=== PATIENT | female | born 1985 | race Caucasian/White ===

== ENCOUNTER → 2021-06-15 | Outpatient (CLI) | payer OTHER ==
--- NOTE | 2021-06-15 14:30 | P.GSHP ---
History of Present Illness H&P Date: 06/15/21 Chief Complaint: abnormal left breast mammogram Jillian is a 35-year-old white female seen in consultation for Dr. Dominique regarding left breast pain. She was seen about 3 months ago and bilateral mammogram and ultrasound were done which showed bilateral complicated cyst. She started to wear sports bra's and the pain has improved. The pain returns if she doesn't wear a bra. The pain in only in the left breast and is sharp in nature. It does not spread. It seems to be in proximetry to cyst noted on ultrasound. She has never had any breast surgery in the past. She does not complain of any recent trauma or infection in the breast. She does not feel any specific lumps masses or nodules in the breast. She is not complaining of any nipple discharge. Mammogram report from [facility] performed on 1521 revealed two high risk lesions in bilateral breast one is a 2.3 x 1.1 cm lesion right breast, and the second is a 0.85 x 0.7 cm lesion at the 9 o'clock position in the left breast 522 bilateral breast ultrasounds done revealing complicated cyst in both breasts Aspiration biopsy of both breast cyst recommend Caffeine: 1 can/day; used to drink a 2 liter/day nicotine: stopped 3 years ago chocolate: occasional Family History: great aunt maternal: breast cancer mother: pre-leukemia maternal grandfather: colon cancer two times Hormonal History: menarche: 11 , breast fed: no, age at first : 20 periods regular on DEPO 15 years ago BCP: 2 years hormones: DEPO 15 years Surgical History: gallbladder tubes in ears LEEP procedure Medical History: none Social History: nicotine: 1/PPD for 12 years stopped 3 years ago alcohol: stopped 3 years ago drugs: none - Constitutional Constitutional: Reports sweats - EENT Eyes: denies blurred vision, denies pain Ears: deny: decreased hearing, tinnitus Ears, nose, mouth and throat: Denies headache, Denies sore throat - Breasts Breasts: bilateral: as per HPI - Cardiovascular Cardiovascular: Denies chest pain, Denies shortness of breath - Respiratory Respiratory: Denies cough, Denies 7 - Gastrointestinal Gastrointestinal: Denies abdominal pain, Denies diarrhea, Denies nausea, Denies vomiting - Genitourinary (Female) Genitourinary: Denies dysuria, Denies hematuria - Menstruation Comment: no periods for 8 years Menstruation: Reports as per HPI - Musculoskeletal Musculoskeletal: Denies myalgias - Integumentary Integumentary: Denies pruritus, Denies rash - Psychiatric Psychiatric: Denies anxiety, Denies depression - Endocrine Endocrine: Denies fatigue, Denies weight change - Hematologic/Lymphatic Comment: anemia in past - Allergic/Immunologic Allergic/Immunologic: Reports seasonal allergies Past Medical History Past Medical History: GERD/Reflux History of Any Multi-Drug Resistant Organisms: None Reported Past Surgical History: Cholecystectomy Additional Past Surgical History / Comment(s): cervical leep. bilat tubes in ears Past Anesthesia/Blood Transfusion Reactions: No Reported Reaction Past Psychological History: No Psychological Hx Reported Smoking Status: Former smoker Past Alcohol Use History: Rare Past Drug Use History: None Reported Medications and Allergies Home Medications Medication Instructions Recorded Confirmed Type Omeprazole 20 mg PO DAILY 06/09/21 06/09/21 History medroxyPROGESTERone [Depo-Provera] 150 mg IM ONCE 06/09/21 06/09/21 History Allergies Allergy/AdvReac Type Severity Reaction Status Date / Time cephalexin [From Keflex] Allergy Rash/Hives Verified 06/09/21 11:55 iodine Allergy Rash/Hives Verified 06/09/21 11:55 Surgical - Exam - General no distress - Eyes normal ocular movement - Neck trachea midline - Respiratory normal respiratory effort - Cardiovascular Rhythm: regular Heart Sounds: normal: S1, S2 - Abdomen Abdomen: soft - Integumentary normal turgor - Neurologic no disoriented, no combative - Musculoskeletal normal gait - Psychiatric oriented to time, oriented to person, oriented to place, speech is normal, memory intact Breast Exam: BRA: 42C inspection: Bilateral grade 3 ptosis Palpation: Right breast: Positional exam fibrocystic changes no dominant masses or nodules of concern Right axilla: No adenopathy of concern Left breast: Multi-positional exam fibrocystic changes no dominant masses or nodules of concern Left axilla: No adenopathy of concern Results Mammogram and ultrasound reports from [facility] reviewed from March 2021 Assessment and Plan Assessment: Impression: Radiographic abnormality bilateral breast Fibrocystic breast changes Mastodynia High caffeine intake which has now decreased Plan: Bilateral breast ultrasound core aspiration/biopsy Follow up after results of biopsy Continue to avoid caffeine Cc: Dr. Dominique
== END ==
LOC: WWCWWP 13:16
PROVIDERS: ATTEND Surgery
DX: N60.11 Diffuse cystic mastopathy of right breast (principal); N60.12 Diffuse cystic mastopathy of left breast; R92.8 Other abnormal and inconclusive findings on diagnostic imaging of breast; Z87.891 Personal history of nicotine dependence; Z88.1 Allergy status to other antibiotic agents; Z91.041 Radiographic dye allergy status

== ENCOUNTER → 2021-06-19 | Day surgery (SDC) | payer OTHER ==
[2021-06-19 12:32] VITALS: RESP 16
[2021-06-19 14:13] VITALS: BP 110/77; PULSE 74; TEMP 98.4
--- NOTE | 2021-06-19 16:41 | USB ---
EXAMINATION TYPE: US breast aspiration single RT and single left. DATE OF EXAM: 06/19/2021 CLINICAL HISTORY: N63 BREAST LUMP/MASS. Abnormal ultrasound TECHNIQUE: Ultrasound guided vaccuum assisted core biopsy of right breast. COMPARISON: 05/03/2021 ultrasound FINDINGS: The ultrasound guided cyst aspiration procedure was explained to the patient. The risks, b enefits, alternatives were discussed. An informed consent was then obtained. Timeout was performed. The patient was placed in supine positioning for imaging and for the procedure. The overlying skin w as prepped with betadine and sterilely draped in usual sterile fashion. Lidocaine 1% was used as ane sthetic into the skin and deeper breast tissue up to area of concern in the breast. Under ultrasound guidance, an 18-gauge vacuum assisted aspiration device was used to cyst aspiration for sampling. Collapse of a left breast fluid-filled structure was obtained. Sample was labeled for transferred to pathology. A biopsy clip was left in lesion. Ribbon clip was placed. The patient was placed in supine positioning for imaging and for the procedure. The overlying skin w as prepped with betadine and sterilely draped in usual sterile fashion. Lidocaine 1% was used as ane sthetic into the skin and deeper breast tissue up to area of concern in the breast. Under ultrasound guidance, an 18-gauge vacuum assisted aspiration device was used to cyst aspiration for sampling. Easy collapse of a right breast fluid-filled structure was obtained. Sample was labele d for transferred to pathology. A biopsy clip was left in lesion. Wing clip was placed. Good hemostasis was obtained with direct pressure. Discharge instructions were discussed with the chidi molina. The patient will follow up with the referring physician for results. Postprocedure mammogram: The patient was transferred to mammography for physician ordered post proced ure mammogram for clip placement verification. The clips are in the expected region of the biopsy. The patient tolerated the procedure well without any immediate complication. The patient was dischar ged to home in stable condition. IMPRESSION: 1. Successful ultrasound guided cyst aspiration bilateral breasts. Recommendations: 1. Recommendations are pending pathology results.
== END | disposition home or self-care (01) ==
LOC: RADUSWWP 11:49
PROVIDERS: ATTEND Surgery
DX: N63.10 Unspecified lump in the right breast, unspecified quadrant (principal); N63.20 Unspecified lump in the left breast, unspecified quadrant
CPT/HCPCS: 88305; 88173; 77066; 76942; 19000 ×2; A4648; J2001

== ENCOUNTER → 2021-06-23 | Outpatient (CLI) | payer OTHER ==
[2021-06-23 13:17] VITALS: BP 124/73; PULSE 105; RESP 16; TEMP 98.5
--- NOTE | 2021-06-23 13:24 | P.PN ---
Subjective Progress Note Date: 06/23/21 Principal diagnosis: fibrocystic breast disease Jillian is a 35-year-old white female status post aspiration of bilateral breast cyst performed on 220 122. The cyst on the left breast was at 9:00 and was degenerating cellular material, forming back or 5 inches and inflammatory cells Cyst on the right breast was 10:00 clusters of bland apocrine Cells in a background of degenerated cellular material Patient tolerated procedure without difficulty. The patient states that after the cysts were aspirated she has no more mastodynia. Objective - Vital Signs Vital signs: Vital Signs Temp 98.5 F 06/23/21 13:07 Pulse 105 H 06/23/21 13:07 Resp 16 06/23/21 13:07 BP 124/73 06/23/21 13:07 Pulse Ox Intake & Output 06/22/21 06/23/21 06/23/21 18:59 06:59 18:59 Weight 131.542 kg - Constitutional General appearance: Present: cooperative - EENT Eyes: Present: edentulous ENT: Present: hearing grossly normal - Neck Neck: Present: normal ROM - Integumentary Integumentary Comment(s): Aspiration size bilateral breast clean and dry no evidence of any infection Assessment and Plan Assessment: Impression: Fibrocystic breast changes Status post aspiration bilateral cysts Plan: Bilateral breast ultrasound in 6 months. Physician exam at that time. CC: Dr. Dominique, Dr. Arredondo
== END ==
LOC: WWCWWP 12:20
PROVIDERS: ATTEND Surgery
DX: N60.19 Diffuse cystic mastopathy of unspecified breast (principal); Z98.890 Other specified postprocedural states; Z88.1 Allergy status to other antibiotic agents; Z91.041 Radiographic dye allergy status

== ENCOUNTER → 2022-01-03 | Outpatient (CLI) | payer OTHER ==
--- NOTE | 2022-01-04 12:01 | USB ---
Reason for Exam: Follow-up at short interval from prior study. Patient History: Menarche at age 11. First Full-Term at age 20. Currently using Hormonal Contraceptives, for 15 years. 06/19/2021, Benign Cyst Aspiration on the left side. 06/19/2021, Benign Cyst Aspiration on the right side. Maternal aunt had breast cancer. Risk Values: Gerda 5 year model risk: 0.2%. NCI Lifetime model risk: 8.2%. Prior Study Comparison: 06/19/2021 Bilateral Diagnostic Mammogram, [facility]. Findings: The area of palpable concern of both breasts, the axilla of both breasts and the retroareolar of both breasts were scanned. Right limited breast ultrasound includes all four quadrants, the retroareolar region and axilla. Finding demonstrates a 1.5 x 1.6 x 1.1cm cystic lesion at 10 o'clock, 7cm from the nipple, septated, smaller than comparison. Left limited breast ultrasound includes all four quadrants, the retroareolar region and axilla. Finding is negative. Overall Assessment: Probably benign, BI-RAD 3 Management: Diagnostic Mammogram of both breasts in 6 months. Diagnostic Breast Ultrasound of the right breast in 6 months. Manage on a clinical basis. A clinical breast exam by your physician is recommended on an annual basis and results should be correlated with mammographic findings. This exam should not preclude additional follow-up of suspicious palpable abnormalities. Results were given to the patient verbally at the time of exam. Electronically signed and approved by: Don Bowman D.O. Radiologis
== END | disposition home or self-care (01) ==
LOC: RADUSWWP 14:24
PROVIDERS: ATTEND Surgery
DX: N60.02 Solitary cyst of left breast (principal); Z80.3 Family history of malignant neoplasm of breast

== ENCOUNTER → 2022-01-18 | Outpatient (CLI) | payer OTHER ==
[2022-01-18 15:25] VITALS: BP 125/84; PULSE 90; RESP 17; TEMP 97.8
--- NOTE | 2022-01-18 15:28 | P.PN ---
Subjective Progress Note Date: 01/18/22 Principal diagnosis: fibrocystic breast changes Jillian is a 36 year old white female with a history of fibrocystic breast changes. She had a core aspiration/biopsy of both breast on 06-19-21. Findings were benign. On 01-03-22 she had a bilateral ultrasound which was BIRAD 3, revealing a cyst in the right breast, no lesions in the left breast. She is not complaining of any lumps masses or nodules in either breast. Does not had any recent trauma or infection in the breast. Caffeine: 1 can/day; used to drink a 2 liter/day nicotine: stopped 4 years ago chocolate: occasional Family History: great aunt maternal: breast cancer mother: pre-leukemia maternal grandfather: colon cancer two times Hormonal History: menarche: 11 , breast fed: no, age at first : 20 periods regular on DEPO 15 years ago BCP: 2 years hormones: DEPO 15 years Surgical History: gallbladder tubes in ears LEEP procedure Medical History: none Social History: nicotine: 1/PPD for 12 years stopped 3 years ago alcohol: stopped 3 years ago drugs: none - Constitutional Constitutional: Reports sweats - EENT Eyes: denies blurred vision, denies pain Ears: deny: decreased hearing, tinnitus Ears, nose, mouth and throat: Denies headache, Denies sore throat - Breasts Breasts: bilateral: as per HPI - Cardiovascular Cardiovascular: Denies chest pain, Denies shortness of breath - Respiratory Respiratory: Denies cough - Gastrointestinal Gastrointestinal: Denies abdominal pain, Denies diarrhea, Denies nausea, Denies vomiting - Genitourinary (Female) Genitourinary: Denies dysuria, Denies hematuria - Menstruation Comment: no periods for 8 years Menstruation: Reports as per HPI - Musculoskeletal Musculoskeletal: Denies myalgias - Integumentary Integumentary: Denies pruritus, Denies rash - Psychiatric Psychiatric: Denies anxiety, Denies depression - Endocrine Endocrine: Denies fatigue, Denies weight change - Hematologic/Lymphatic Comment: anemia in past - Allergic/Immunologic Allergic/Immunologic: Reports seasonal allergies Objective - Constitutional General appearance: Present: cooperative - EENT Eyes: Present: EOMI ENT: Present: hearing grossly normal - Neck Neck: Present: normal ROM - Respiratory Respiratory: bilateral: CTA - Cardiovascular Rhythm: regular Heart sounds: normal: S1, S2 - Gastrointestinal General gastrointestinal: Present: soft - Integumentary Integumentary: Present: normal turgor - Musculoskeletal Musculoskeletal: Present: gait normal - Psychiatric Psychiatric: Present: A&O x's 3, appropriate affect, intact judgment & insight - Additional findings Additional findings: Breast examination: BRA: 44C Inspection: Bilateral grade 2/3 ptosis Palpation: Right breast: Multi-positional exam fibrocystic changes no dominant masses or nodules of concern Right axilla: No adenopathy of concern Left breast: Multiple positional exam fibrocystic changes no dominant masses or nodules of concern Left axilla: No adenopathy of concern Assessment and Plan Assessment: Impression: Bilateral fibrocystic breast changes Recent bilateral breast ultrasound revealed a cystic lesion in the 10 o'clock position of the right breast Plan: Close surveillance Bilateral mammogram and right breast ultrasound in May with physician exam at that time CC: Dr. Arredondo
== END ==
LOC: WWCWWP 14:50
PROVIDERS: ATTEND Surgery
DX: N60.11 Diffuse cystic mastopathy of right breast (principal); N60.12 Diffuse cystic mastopathy of left breast

== ENCOUNTER → 2023-01-07 | Outpatient (CLI) | payer OTHER ==
--- NOTE | 2023-01-07 14:59 | MM ---
Reason for Exam: Follow-up at short interval from prior study. Last screening mammogram was performed 6 month(s) ago. Patient History: Menarche at age 11. First Full-Term at age 20. Currently using Hormonal Contraceptives, for 15 years. 06/19/2021, Benign Cyst Aspiration on the left side. 06/19/2021, Benign Cyst Aspiration on the right side. Maternal aunt had breast cancer. Last menstrual period: Risk Values: Gerda 5 year model risk: 0.3%. NCI Lifetime model risk: 8.2%. Prior Study Comparison: 06/19/2021 Bilateral Diagnostic Mammogram, [facility]. 07/05/2022 Bilateral MG diagnostic mammo w CAD COLLEEN, [facility]. Tissue Density: Right: The breast tissue is heterogeneously dense. This may lower the sensitivity of mammography. Findings: Analyzed By CAD. Nodules seen previously have diminished in size and is compatible with waxing and waning cysts. No new nodules seen. Biopsy clip noted within the upper outer quadrant right breast. No suspicious calcifications seen. Overall Assessment: Benign, BI-RAD 2 Management: Diagnostic Mammogram of both breasts in 6 months. . Results were given to the patient verbally at the time of exam. Patient should continue monthly self-breast exams. A clinical breast exam by your physician is recommended on an annual basis. This exam should not preclude additional follow-up of suspicious palpable abnormalities. Note on Gerda scores and lifetime risk: 1. A Gerda score greater than 3% is considered moderate risk. If this is the case, consider specialist referral to assess eligibility for a risk reducing agent. 2. If overall lifetime risk for the development of breast cancer is 20% or higher, the patient may qualify for future screening with alternating mammogram and breast MRI. Electronically signed and approved by: Holden Noe M.D. Radiologis
== END | disposition home or self-care (01) ==
LOC: RADMAMWWP 14:34
PROVIDERS: ATTEND Surgery
DX: R92.8 Other abnormal and inconclusive findings on diagnostic imaging of breast (principal); Z80.3 Family history of malignant neoplasm of breast
CPT/HCPCS: 77065; G0279; 77061